=== PATIENT | male | born 1990 | race Hispanic/Latino ===

== ENCOUNTER 2018-04-12 22:50 | Inpatient (IN) | payer SELFPAY ==
--- NOTE | 2018-04-12 23:26 | C.PDOC ---
History Of Present Illness 28 year old male presents to the ED for evaluation of depression and suicidal ideation. Patient reports his mother 7 months ago, and has been abusing heroin and cocaine. Patient reports he might jump in front of a train . Patient denies HI, hallucinations, injury, fall, trauma. Time Seen by Provider: 04/12/18 23:26 Chief Complaint (Nursing): Psychiatric Evaluation History Per: Patient History/Exam Limitations: no limitations Onset/Duration Of Symptoms: Days Current Symptoms Are (Timing): Still Present Suicide/Self Injury Attempted (Context): Other Modifying Factor(s): Cocaine, Other (Heroin) Severity: None Associated Symptoms: Depression, Suicidal Thoughts, Suicidal Plan Recent travel outside of the [place]: No Additional History Per: Patient Past Medical History Reviewed: Historical Data, Nursing Documentation, Vital Signs Vital Signs: Last Vital Signs Temp 98.4 F 04/12/18 23:05 Pulse 99 H 04/12/18 23:05 Resp 20 04/12/18 23:05 BP 121/74 04/12/18 23:05 Pulse Ox 98 04/12/18 23:05 - Medical History PMH: Depression Surgical History: No Surg Hx Family History: States: Unknown Family Hx - Social History Hx Alcohol Use: Yes Hx Substance Use: Yes - Immunization History Hx Tetanus Toxoid Vaccination: No Hx Influenza Vaccination: No Hx Pneumococcal Vaccination: No Review Of Systems Constitutional: Negative for: Fever, Chills Cardiovascular: Negative for: Chest Pain Respiratory: Negative for: Cough, Shortness of Breath Gastrointestinal: Negative for: Nausea, Vomiting, Abdominal Pain Skin: Negative for: Rash Neurological: Negative for: Headache, Dizziness Psych: Positive for: Depression, Suicidal ideation Physical Exam - Physical Exam Appears: Non-toxic, No Acute Distress, Other (depressed affect) Skin: Warm, Dry Head: Normacephalic Eye(s): bilateral: Normal Inspection Oral Mucosa: Moist Neck: Supple Chest: Symmetrical Cardiovascular: Rhythm Regular Respiratory: No Rales, No Rhonchi, No Wheezing Gastrointestinal/Abdominal: Soft, No Tenderness, No Guarding, No Rebound Back: Normal Inspection Extremity: Normal ROM Extremity: Bilateral: Atraumatic, Normal Color And Temperature, Normal ROM Neurological/Psych: Oriented x3, Normal Speech, Normal Cognition Gait: Steady ED Course And Treatment - Laboratory Results Result Diagrams: 04/12/18 23:38 04/12/18 23:38 O2 Sat by Pulse Oximetry: 98 (ON RA) Pulse Ox Interpretation: Normal Progress Note: Plan: - Labs. - UA. - Crisis eval Disposition Discussed With Dr.: Tam Vivar Comment: accepted the pt onhis service and took over the care at 2:24 AM Doctor Will See Patient In The: Hospital Counseled Patient/Family Regarding: Studies Performed, Diagnosis - Disposition Disposition: HOSPITALIZED Disposition Time: 23:26 Condition: FAIR Forms: [facility] (Gambian) - Clinical Impression Clinical Impression: Major depression, Opioid use disorder - Scribe Statement The provider has reviewed the documentation as recorded by the Scribe Jesús Momin All medical record entries made by the Scribe were at my direction and personally dictated by me. I have reviewed the chart and agree that the record accurately reflects my personal performance of the history, physical exam, medical decision making, and the department course for this patient. I have also personally directed, reviewed, and agree with the discharge instructions and disposition. Decision To Admit - Pt Status Changed To: Hospital Disposition Of: Inpatient - Admit Certification Admit to Inpatient:: After my assessment, the patient will require hospitalization for at least two midnights. This is because of the severity of symptoms shown, intensity of services needed, and/or the medical risk in this patient being treated as an outpatient. - InPatient: Physician Admission Certification: I certify that this patient requires 2 or more midnights of care for the following reason:: After my assessment, the patient will require hospitalization for at least two midnights. This is because of the severity of symptoms shown, intensity of services needed, and/or the medical risk in this patient being treated as an outpatient. - . Bed Request Type: Psychiatry Admitting Physician: Tam Vivar Patient Diagnosis: Major depression, Opioid use disorder
[2018-04-12 23:45] LABS: BASO # 0.1 K/uL (0.0-0.2); BASO % 0.6 % (0.0-2.0); EOS # 0.3 K/uL (0.0-0.7); EOS % 2.6 % (0.0-4.0); HEMOGLOBIN 13.4 g/dL (12.0-18.0); LYMPH # 1.7 K/uL (1.0-4.3); LYMPH % 16.9 % (20.0-40.0); MEAN CELL VOLUME 85.7 fL (80.0-94.0); MEAN CORPUSCULAR HEMOGLOBIN 29.1 pg (27.0-31.0); MEAN CORPUSCULAR HGB CONC 33.9 g/dL (33.0-37.0); MONO % 10.1 % (0.0-10.0); NEUT # 7.1 K/uL (1.8-7.0); NEUT % 69.8 % (50.0-75.0); RBC 4.62 Mil/uL (4.40-5.90); RED CELL DISTRIBUTION WIDTH 13.6 % (11.5-14.5); WHITE BLOOD COUNT 10.1 K/uL (4.8-10.8)
[2018-04-12 23:55] LABS: ALB/GLOB RATIO 1.5 (1.0-2.1); ALBUMIN 4.9 g/dL (3.5-5.0); ALT/SGPT 81 U/L (21-72); AST/SGOT 43 U/L (17-59); BLOOD UREA NITROGEN 17 mg/dL (9-20); CALCIUM 9.8 mg/dl (8.6-10.4); GFR NON-AFRICAN AMERICAN > 60
[2018-04-13 01:41] LABS: SQUAMOUS EPITHIAL 1 /hpf (0-5); URINE BILIRUBIN NEGATIVE (NEGATIVE); URINE BLOOD NEGATIVE (NEGATIVE); URINE CLARITY Hazy (Clear); URINE COLOR Amber (YELLOW); URINE GLUCOSE (UA) NORMAL (Normal); URINE HYALINE CAST >20 /lpf (0-2); URINE LEUKOCYTE ESTERASE NEG Leu/uL (Negative); URINE PROTEIN 1+ mg/dL (NEGATIVE); URINE UROBILINOGEN NORMAL mg/dL (0.2-1.0)
[2018-04-13 01:49] LABS: BARBITURATES, UR NEGATIVE (NEGATIVE); PHENCYCLIDINE, UR NEGATIVE (NEGATIVE)
[2018-04-13 01:52] LABS: BENZODIAZEPINES, UR POSITIVE (NEGATIVE); OPIATES, UR POSITIVE (NEGATIVE)
--- NOTE | 2018-04-13 04:42 | PCM.BM ---
<Cecilio Dimas Domenica - Last Filed: 04/13/18 04:39> Treatment Plan Problems - Problems identified on initial assessmt Suicidal Ideation Date Initiated: 04/13/18 Time Initiated: 03:26 Assessment reference: NA Status: Monitor Substance Abuse Date Initiated: 04/13/18 Time Initiated: 03:26 Assessment reference: NA Status: Active Treatment assets and liabiliti Patient Assests: adapts well, cooperative, ADL independent, physically healthy, cognitively intact Patient Liabilities: relationship conflicts, substance abuse - Milieu Protocol Maintain good personal hygiene: daily Encourage regular showers, daily Remind patient to perform daily oral care, daily Assist patient to perform ADL's Conduct patient checks and document Observation sheet: Q15 minutes Maintain personal safety: every shift Educate patient to report safety concerns to staff, every shift Monitor environment for contraband/sharps Medication safety: Monitor for expected outcome, potential side effects: every shift, Assess barriers to learning: every shift, Assess readiness for medication education: every shift <Linda Ocampo - Last Filed: 04/13/18 12:15> Family Contact Family involvement: Family/SO is involved Family contact: Patient agrees to contact - Goals for Treatment Patient goals for treatment: "I want to go to an outpatient program." Discharge/Continuing Care - Education Needs Education Needs: Patient Medication, Patient Diagnosis/Disease Process, Patient Coping Skills, Patient Placement options, Patient Community resources - Discharge Discharge Criteria: Free of Suicidal thoughts, Normal sleep pattern, Ability to care for self, No longer exhibiting s/s of withdrawal, Reduction of target sy mptoms Discharge to:: Home, With Family - Treatment Team Participation Discussed with Family/SO: No Was Patient/Family/SO present at Treatment Team Meeting: Yes <Tam Vivar - Last Filed: 04/13/18 15:23> - Diagnosis (1) Major depressive disorder, recurrent severe without psychotic features Status: Acute Interventions: 04/13/18 15:22 * Assess/adjust medications daily and /or as needed * See patient on an individual basis 7x/week to assess status of hallucinations * Discuss risks, benefits, side effects and alternatives of medications (2) Opioid use disorder, severe, dependence Status: Acute Interventions: 04/13/18 15:22 * Assess 7x/week regarding severity of withdrawal * Educate regarding risks, benefits, side effects and alternatives of medications * Use Motivational Interviewing for abstinence * Use CBT for relapse prevention * Medication management for withdrawal symptoms * Encourage medication assisted treatment (3) Alcohol use disorder, severe, dependence Status: Acute Interventions: 04/13/18 15:22 * Assess 7x/week regarding severity of withdrawal * Educate regarding risks, benefits, side effects and alternatives of medications * Use Motivational Interviewing for abstinence * Use CBT for relapse prevention * Medication management for withdrawal symptoms * Encourage medication assisted treatment (4) Cocaine use disorder, severe, dependence Status: Acute Interventions: 04/13/18 15:22 * Assess 7x/week regarding severity of withdrawal * Educate regarding risks, benefits, side effects and alternatives of medications * Use Motivational Interviewing for abstinence * Use CBT for relapse prevention * Medication management for withdrawal symptoms * Encourage medication assisted treatment (5) Sedative, hypnotic or anxiolytic use disorder, mild, abuse Status: Acute Interventions: 04/13/18 15:23 * Assess 7x/week regarding severity of withdrawal * Educate regarding risks, benefits, side effects and alternatives of medic ations * Use Motivational Interviewing for abstinence * Use CBT for relapse prevention * Medication management for withdrawal symptoms * Encourage medication assisted treatment
[2018-04-13] MEDS ORDERED: Aluminum Hydroxide/Magnesium Hydroxide Susp (30 mL) PO PRN (11:12)
[2018-04-13] MEDS: Multiple Vitamins Tab PO SCH (12:20)
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
[2018-04-14 06:12] VITALS: RESP 18; TEMP 98.6; O2SAT 97
[2018-04-14 09:13] VITALS: BP 113/76; PULSE 74
[2018-04-14] MEDS: Multiple Vitamins Tab PO SCH (10:53)
--- NOTE | 2018-04-14 20:08 | PCM.PYCHDC ---
Mental Status Examination - Mental Status Examination Orientation: Person, Place, Situation, Time Memory: Intact Mood: Neutral Affect: Other (Appropriate) Speech: Appropriate Attention: WNL Concentration: WNL Association: WNL Fund of Knowledge: WNL Formal Thought Process: No Impairment Description of patient's judgement and insight: Poor Psychotic Thoughts and Behaviors: None Suicidal Ideation: No Current Homicidal Ideation?: No Discharge Summary - Discharge Note Reason for Hospitalization: Major depressive disorder recurrent severe without psychotic features. PTSD. Opioid use disorder severe. Alcohol use disorder severe. Cocaine use disorder. Anxiolytics use disorder Laboratory Data: Reviewed Consultations:: List each consultation separately and include: 1. Reason for request. 2. Findings. 3. Follow-up Summary of Hospital Course include:: 1. Description of specific treatment plan utilized for patients during their course of treatmen. 2. Summarize the time- course for resolution of acute symptoms and/or regressed behaviors. 3. Describe issues identified and worked on during hospitalization. 4. Describe medication utilized. 5. Describe medical problems identified and treated. 6. Reassessment of suicide risk Summary of Hospital Course: Patient is a 28 years old, , unemployed, male with history of depression and he was admitted due to worsening of depression with suicidal charly ations and withdrawing from heroin, alcohol, cocaine and Xanax. Patient reported feeling depression for last 1 year, had some counseling in the past. Suicidal ideations at times but no suicidal attempt. Difficulty sleeping, no change in appetite. His depression worsened with suicidal ideations and plan to overdose on heroin. Denied any psychotic or anxiety symptoms. Of some hyperactivity during intoxication. Opioid: Patient started using heroin 5 years ago. Heroin is his drug of choice. Before starting heroin patient was using pills for 2 years. His heroin use increased gradually. Currently he was using 1-2 bundles of heroin daily, IV. Last used yesterday, 2 bundles. Longest period of abstinence was one year, 2 years ago. He also has history of Suboxone use for about 2 weeks few months ago. History of 4 detox and 4 rehabs. Alcohol: Started using alcohol at 18 years of age, drinking 3 beer each of 24 ounces daily, last used yesterday. Cocaine: Started using cocaine at 17 years of age. Was using 2 times per week, IV and sniffing, half gram each time. Last used 1 g yesterday. Xanax: He uses 5-6 tablets each of 0.25 mg each, 2 days ago. Also smokes one pack of cigarette daily and is requesting for nicotine patch. Patient has history of drug charges, which are active. Not on probation. Patient was born in [place], has 2 years of college. 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 Patient lives with his father and grandmother. His height is 5 feet 10 inches and weight is 165 pounds. During his stay in the hospital patient was started on methadone taper for opiate withdrawal symptoms, Librium taper for alcohol withdrawal symptoms. Patient was also started on when necessary medications. Patient started feeling better. Today patient decided to leave the unit without completion of the treatment. Education provided. Patient was educated about to detox process and also educated that in case of any adverse event including decompensation, overdose, relapse or even of the patient, patient will be responsible for his acts. Patient understood and agreed with the above but still refuses to stay and left the unit AGAINST MEDICAL ADVICE. At the time of evaluation and discharge, patient was awake, alert and oriented 3, had no delusions, no auditory or visual hallucinations, no suicidal ideations or homicidal ideations. - Diagnosis (1) Major depressive disorder, recurrent severe without psychotic features Status: Acute (2) Opioid use disorder, severe, dependence Status: Acute (3) Alcohol use disorder, severe, dependence Status: Acute (4) Cocaine use disorder, severe, dependence Status: Acute (5) Sedative, hypnotic or anxiolytic use disorder, mild, abuse Status: Acute - Final Diagnosis (DSM 5) Condition upon Discharge: FAIR Disposition: AGAINST MEDICAL ADVICE Follow-up Treatment Plan: Patient wants to go to [facility] and also to attend AA meetings after discharge from the hospital for follow-up care. - Smoking Cessation Smoking Cessation Medication prescribed: No - Antipsychotic Medications Pt discharged on 2 or more routine antipsychotic medications: No
[2018-04-16] MEDS ORDERED: Pneumococcal 23-Valent Vaccine IM ONE (10:00)
[2018-04-16] MEDS ORDERED: Influenza Vaccine 60 MCG/0.5 ML SYR (3 yr & up) IM ONE (10:00)
== END 2018-04-14 14:52 | disposition left against medical advice (07) | DRG 885 ==
LOC: C.ER 22:50 → C.5E 04-13 02:34
PROC: HZ2ZZZZ Detoxification Services for Substance Abuse Treatment (ICD-10-PCS; principal; 2018-04-13)
PROC: GZ58ZZZ Individual Psychotherapy, Cognitive-Behavioral (ICD-10-PCS; 2018-04-13)
PROC: GZ56ZZZ Individual Psychotherapy, Supportive (ICD-10-PCS; 2018-04-13)
PROC: HZ52ZZZ Individual Psychotherapy for Substance Abuse Treatment, Cognitive-Behavioral (ICD-10-PCS; 2018-04-13)
PROC: HZ56ZZZ Individual Psychotherapy for Substance Abuse Treatment, Psychoeducation (ICD-10-PCS; 2018-04-13)
PROC: HZ57ZZZ Individual Psychotherapy for Substance Abuse Treatment, Motivational Enhancement (ICD-10-PCS; 2018-04-13)
PROC: HZ81ZZZ Medication Management for Substance Abuse Treatment, Methadone Maintenance (ICD-10-PCS; 2018-04-13)
DX: F33.2 Major depressive disorder, recurrent severe without psychotic features (principal); R45.851 Suicidal ideations; R44.3 Hallucinations, unspecified; F10.239 Alcohol dependence with withdrawal, unspecified; F11.23 Opioid dependence with withdrawal; F14.20 Cocaine dependence, uncomplicated; F43.12 Post-traumatic stress disorder, chronic; F90.9 Attention-deficit hyperactivity disorder, unspecified type; Z62.810 Personal history of physical and sexual abuse in childhood; G47.9 Sleep disorder, unspecified; F13.10 Sedative, hypnotic or anxiolytic abuse, uncomplicated; F17.210 Nicotine dependence, cigarettes, uncomplicated

== ENCOUNTER 2018-06-21 18:17 | Emergency (ER) | payer MEDICAID ==
[2018-06-21 18:23] VITALS: BP 128/80; PULSE 106; RESP 20; TEMP 99.1; O2SAT 96
== END 2018-06-21 18:23 | disposition left against medical advice (07) ==
LOC: C.ER 18:17
DX: Z02.89 Encounter for other administrative examinations (principal); F19.10 Other psychoactive substance abuse, uncomplicated